=== PATIENT | male | born 1965 | race Caucasian/White ===

== ENCOUNTER 2017-11-08 07:56 | Day surgery (SDC) | payer OTHER ==
[2017-11-08] MEDS ORDERED: GLYCOPYRROLATE 0.2 MG/ML SYR ONE (08:07)
[2017-11-08] MEDS ORDERED: Ringers Lactate 1,000 ML IV ONE (08:09)
[2017-11-08] MEDS ORDERED: LIDOCAINE 1% MPF 2 ML AMPULE ONE (08:13)
[2017-11-08] MEDS ORDERED: MIDAZOLAM HCL 2 MG/2 ML INJ ONE (08:13)
[2017-11-08] MEDS ORDERED: PROPOFOL 200 MG/20 ML VIAL IV ONE ×2 (08:13)
[2017-11-08] MEDS ORDERED: LIDOCAINE 4% TOP SOLUTION TOP ONE ×2 (08:20→08:29)
[2017-11-08] MEDS: Phenylephrine HCl 10 MG/ML 1 ML VIAL ONE ×2 (08:24→08:29)
--- NOTE | 2017-11-08 08:58 | P.OP ---
Date of Service: 11/08/17 (Bronchoscopy with right lower lobe transbronchial biopsy channel BAL) Findings and Operative Technique Patient is 52 years of age evaluated by me for right lower lobe lung mass added been stable for quite some time bronchoscopy was done to exclude any other causes Narrative report after obtaining informed consent from the patient he was premedicated by anesthesia A very difficult bronchoscopy due to tracheomalacia patient also has underlying presumed obstructive sleep apnea and frequent episodes of desaturation Very difficult to visualize his entire respiratory tract due to tracheomalacia and a bleeding Findings normal trachea normal evelio normal vocal cords very difficult to visualize his left side on the right side I did not visualize his upper lobe or middle lobe he did have a right lower lobe endobronchial lesion that was biopsied. Multiple biopsies were also performed from the right lower lobe posterior segment
--- NOTE | 2017-11-08 10:22 | RAD REPORT ---
EXAM DESCRIPTION: Noel Single View11/08/2017 10:02 am CLINICAL HISTORY: Right lung mass COMPARISON: none FINDINGS: A pneumothorax is not seen status post bronchoscopy IMPRESSION: A pneumothorax is not visualized
--- NOTE | 2017-11-08 17:08 | RAD REPORT ---
EXAM DESCRIPTION: RAD - FLUORO-GUIDE FOR BRONCH [id number] - 11/08/2017 9:12 am CLINICAL HISTORY: Right lung mass FINDINGS: Three fluoroscopic spot images are submitted. A right bronchoscopy was performed by Dr. Bowman. Fluoroscopy time 2 minutes 27 seconds
== END 2017-11-08 10:22 | disposition home health service (06) ==
LOC: OR 07:56
PROVIDERS: ATTEND Internal Medicine Sleep Medicine
PROC: 0BDF8ZX Extraction of Right Lower Lung Lobe, Via Natural or Artificial Opening Endoscopic, Diagnostic (ICD-10-PCS; principal; 2017-11-08 08:00)
DX: C78.01 Secondary malignant neoplasm of right lung (principal); R91.8 Other nonspecific abnormal finding of lung field; R05 Cough; I10 Essential (primary) hypertension; Z85.53 Personal history of malignant neoplasm of renal pelvis; Z87.891 Personal history of nicotine dependence; Z90.5 Acquired absence of kidney
CPT/HCPCS: 71045; 76000; 87015; 87102; 87116; 87206; 88108; 88305; J2001; J2250; J2370